=== PATIENT | female | born 1940 | race Two or more races ===

== ENCOUNTER 2023-10-29 16:15 | Emergency (ER) | payer OTHER ==
[~2023-10-29] VITALS: Ht 152.4 cm; Wt 59.9 kg
[2023-10-29] MEDS ORDERED: CARAFATE1 GM (16:24)
[2023-10-29] MEDS ORDERED: LEVOXYL75 MCG (16:24)
[2023-10-29] MEDS ORDERED: PROTONIX40 M1 PO (16:25)
[2023-10-29] MEDS ORDERED: TOPROL XL50 M1 (16:25)
[2023-10-29] MEDS ORDERED: FEOSOL325 MG (16:26)
[2023-10-29] MEDS ORDERED: AZOR 10-20 MG1 EACH (16:26)
[2023-10-29] MEDS ORDERED: JARDIANCE10 MG PO (16:26)
[2023-10-29] MEDS ORDERED: TRAZODONE HCL100 MG PO (16:27)
[2023-10-29] MEDS ORDERED: ATORVASTATIN CA10 MG PO (16:27)
[2023-10-29] MEDS ORDERED: NOVOLOG100 UNIT/1 SQ (16:28)
[2023-10-29] MEDS ORDERED: LANTUS SOL100 UNIT/1 SQ (16:28)
[2023-10-29] MEDS ORDERED: COZAAR25 MG PO (16:29)
[2023-10-29] MEDS ORDERED: GLIPIZIDE XL5 MG (16:29)
[2023-10-29] MEDS ORDERED: ORPHENADRINE CITRATE 30 MG/ML AMPUL IM ONE (20:15)
[2023-10-30 00:21] LABS: HEMATOCRIT 36.1 % (36.0-45.00); HEMOGLOBIN 11.7 g/dL (12.0-15.00); MEAN CELL VOLUME 83.4 fL (80.00-100.00); MEAN CORPUSCULAR HGB CONC 32.3 g/dl (32.0-36.0); PLATELET COUNT 407 K/uL (150-450); RED BLOOD COUNT 4.33 M/uL (4.00-6.00); RED CELL DISTRIBUTION WIDTH 14.7 % (11.5-14.5)
[2023-10-30 00:36] LABS: INR < 0.93; PARTIAL THROMBOPLASTIN TIME 24.2 SECONDS (22.0-34.0); PROTHROMBIN TIME 9.7 SECONDS (9.0-11.5)
[2023-10-30 00:43] LABS: ALBUMIN 3.7 gm/dL (3.4-5.0); BILIRUBIN TOTAL 0.23 mg/dL (0.3-1.2); CALCIUM 9.9 mg/dL (8.5-10.1); CREATININE SERUM 2.47 mg/dL (0.55-1.02); GFR 18.7; GLOBULINA 5.4 G/DL (2.4-3.5); POTASSIUM 4.89 mEq/L (3.5-5.1); TOTAL PROTEIN 9.1 gm/dL (6.4-8.2)
== END 2023-10-30 15:54 ==
LOC: ER 16:15
PROVIDERS: Emergency Medicine
DX: M79.605 Pain in left leg (principal); I10 Essential (primary) hypertension; E11.9 Type 2 diabetes mellitus without complications; Z79.4 Long term (current) use of insulin; Z88.2 Allergy status to sulfonamides
CPT/HCPCS: 36415; 71250; 72100; 93926; 93971; 96372; 99284; J2360